=== PATIENT | male | born 1990 | race Caucasian/White ===

== ENCOUNTER 2019-06-25 18:17 | Emergency (ER) | payer OTHER ==
[~2019-06-25] VITALS: Ht 182.9 cm; Wt 68.0 kg
--- NOTE | 2019-06-25 18:33 | NUR ---
PT BIB BY [facility] FOR OD. PT SAID "I TOOK A [address]". PT WAS FOUND CYANOTIC AND UNRESPONSIVE BY GF. EMS ARRIVED AND ADMINSTERED 1 MG NARCAN VIA IV. PT IS RESTING IN [facility]. O2 SATURATION IS 98% ON RM AIR. PT IS CONNECTED TO [employer]. FAMILY IS BEDSIDE.
--- NOTE | 2019-06-25 18:41 | NUR ---
PT DENIES SI/SA. WHEN ASKED HE SAID "ABSOLUTLEY NOT. 100%"
--- NOTE | 2019-06-25 18:59 | NUR ---
PT RESTING IN [facility]. GF IS BEDSIDE. PT PLACED ON END TITAL FOR CO2 MONITORING
[2019-06-25 19:07] LABS: BASOPHILS # (AUTO) 0.05 x10^3/uL (0-0.1); BASOPHILS % (AUTO) 0 % (0-1); EOSINOPHILS # (AUTO) 0.24 x10^3/uL (0-0.4); EOSINOPHILS % (AUTO) 2 % (1-7); LYMPHOCYTES # (AUTO) 1.68 x10^3/uL (1-3.4); LYMPHOCYTES % (AUTO) 14 % (22-44); MD NO; MEAN CORPUSCULAR HEMOGLOBIN 29.9 pg (27.5-34.5); MEAN CORPUSCULAR HGB CONC 33.5 g/dL (33.2-36.2); MEAN CORPUSCULAR VOLUME 89.4 fL (81-97); MEAN PLATELET VOLUME 8.5 fL (7.4-10.4); MONOCYTES # (AUTO) 0.69 x10^3/uL (0.2-0.8); MONOCYTES % (AUTO) 6 % (2-9); NEUTROPHILS # (AUTO) 9.78 x10^3/uL (1.8-6.8); NEUTROPHILS % (AUTO) 79 % (42-75); PLATELET COUNT 251 x10^3/uL (130-400); RED BLOOD COUNT 5.47 x10^6/uL (4.38-5.82); RED CELL DISTRIBUTION WIDTH 13.3 % (9.4-14.8)
[2019-06-25 19:10] LABS: ALBUMIN 4.2 g/dL (3.4-5.0); ANION GAP 7 mmol/L (5-15); CALCIUM 8.2 mg/dL (8.5-10.1); CHLORIDE 107 mmol/L (98-107); CREATININE 0.94 mg/dL (0.7-1.3); SALICYLATE LEVEL 2.3 mg/dL (2.8-20.0)
[2019-06-25 19:37] VITALS: BP 117/72
--- NOTE | 2019-06-25 19:38 | NUR ---
PT RESTING IN [place]. FAMILY IS BEDSIDE. NO NEEDS AT THIS TIME. VSS. NAD NOTED
== END 2019-06-25 21:36 | disposition home or self-care (01) ==
LOC: ED 18:55
DX: T40.1X1A Poisoning by heroin, accidental (unintentional), initial encounter (principal)
CPT/HCPCS: 36415; 80048; 80307; 82040; 85025; 99283